=== PATIENT | female | born 1940 | race Caucasian/White ===

== ENCOUNTER 2022-03-06 15:12 | Inpatient (IN) | payer OTHER ==
[~2022-03-06] VITALS: Ht 165.1 cm; Wt 71.7 kg
[2022-03-06 15:15] VITALS: BP_SYST 200
[2022-03-06] MEDS ORDERED: iohexoL 350 mgI/mL, 100 ML INFUS..BTL IV ONE (15:20)
--- NOTE | 2022-03-06 15:22 | NUR ---
TAKEN IMMEDIATELY TO CT SCAN WITH STAFF ACCOMPANIED.
--- NOTE | 2022-03-06 15:22 | NUR ---
CODE STROKE INITIATED.
--- NOTE | 2022-03-06 15:31 | NUR ---
PT STATES THAT SHE HAS BEEN HAVING MULTIPLE FALLS RECENTLY, DENIES ANY HEAD INJURY, STATES THAT SHE HAS JUST BEEN OFF BALANCE. 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 PT IS ALERT AND ORIENTED. DENIES ANY PAIN. PT STATES SHE WAS RECENTLY AT [facility] FOR A FALL. PT STATES SHE HAS A DAUGHTER WHO RESIDES IN [place].
--- NOTE | 2022-03-06 15:35 | NUR ---
TELENEURO REQUESTED ORDERED BY DR. CRISTOFER COOMBS AT BEDSIDE
[2022-03-06 16:06] LABS: ANION GAP 10 (5-15); BASOPHILS # (AUTO) 0.1 K/uL (0.0-0.2); CALCIUM 9.4 mg/dL (8.4-11.0); CHLORIDE 108 mmol/L (98-107); CREATININE 0.66 mg/dL (0.55-1.30); EOSINOPHILS # (AUTO) 0.2 K/uL (0.0-0.4); EOSINOPHILS % (AUTO) 3.6 % (0.0-4.0); GLUCOSE 170 mg/dL (70-99); HEMATOCRIT 33.4 % (36-48); HEMOGLOBIN 11.6 g/dL (12.0-16.0); LYMPHOCYTES # (AUTO) 1.7 K/uL (1.0-5.5); LYMPHOCYTES % (AUTO) 27.3 % (20.5-51.5); MEAN CORPUSCULAR HEMOGLOBIN 33 pg (27-31); MEAN CORPUSCULAR HGB CONC 35 % (32-36); MEAN CORPUSCULAR VOLUME 94 fL (79.0-98.0); MONOCYTES # (AUTO) 0.6 K/uL (0.0-1.0); MONOCYTES % (AUTO) 9.6 % (1.7-9.3); NEUTROPHILS # (AUTO) 3.7 K/uL (1.8-7.7); NEUTROPHILS % (AUTO) 58.5 % (40.0-70.0); PLATELET COUNT (AUTO) 129 K/uL (130-430); RED BLOOD CELL COUNT(AUTO) 3.53 MIL/uL (4.2-6.2); RED CELL DISTRIBUTION WIDTH 14.3 % (9.0-15.0); UREA NITROGEN, BLOOD 15 mg/dL (8-21); WHITE BLOOD COUNT (AUTO) 6.3 K/uL (4.8-10.8)
[2022-03-06 16:13] LABS: ALANINE AMINOTRANSFERASE 28 U/L (12-78); ASPARTATE AMINOTRANSFERASE 29 U/L (10-37)
[2022-03-06 16:26] LABS: INR 1.2 (0.8-1.2); PROTHROMBIN TIME 11.8 SECS (9.5-12.5)
--- NOTE | 2022-03-06 17:01 | NUR ---
SPOKE WITH DAUGHTER ROBERTA AND ALL QUESTIONS ANSWERED. ALL INFORMATION OBTAINED WAS GIVEN TO DR CLEVELAND. ACCORDING TO DAUGHTER, PT MAY NEED TO GO INTO AN ASSISTED LIVING DUE TO ISSUES WITH FALLING AND INABILITY TO TAKE CARE OF HERSELF AT HOME. PT LIVES BY HERSELF AND DAUGHTER ROBERTA LIVES IN [place]. ALL PHONE NUMBERS WERE VERIFIED
[2022-03-06] MEDS ORDERED: LOSA100T3 PO (17:40)
[2022-03-06] MEDS ORDERED: [UNRECOGNIZED DRUG - CODE] PO (17:40)
[2022-03-06] MEDS ORDERED: ASPI-1155 PO (17:40)
[2022-03-06] MEDS ORDERED: PRAV10TA PO (17:40)
[2022-03-06] MEDS ORDERED: LEVO75TA7 PO (17:40)
[2022-03-06] MEDS ORDERED: METO25TA3 PO (17:40)
--- NOTE | 2022-03-06 17:40 | NUR ---
Medication reconciliation completed with information provided by PATIENT. Any prior medication reconciliation on file was reviewed and corrected.
--- NOTE | 2022-03-06 17:45 | NUR ---
PT TAKING TO TELE NEURO AT THIS TIME.
[2022-03-06 17:54] LABS: BILIRUBIN,URINE NEGATIVE (NEGATIVE); BLOOD, URINE NEGATIVE (NEGATIVE); CLARITY/URINE CLEAR (CLEAR); COLOR,URINE YELLOW (YELLOW); GLUCOSE,URINE NEGATIVE (NEGATIVE); KETONES,URINE NEGATIVE (NEGATIVE); LEUKOCYTE ESTERASE ,URINE NEGATIVE (NEGATIVE); NITRITE, URINE NEGATIVE (NEGATIVE); PROTEIN URINE NEGATIVE (NEGATIVE); UROBILINOGEN,URINE 0.2 (0.2-1.0)
[2022-03-06] MEDS ORDERED: ASPIRIN 325 MG TABLET (ECOTRIN) PO ONE (18:15)
[2022-03-06] MEDS ORDERED: CLOPIDOGREL BISULFATE 75 MG TABLET PO ONE (18:15)
--- NOTE | 2022-03-06 19:30 | NUR ---
PT RESTING IN BED AWAKE, A&O X4, AND FOLLOWING COMMANDS. PT STATING SHE IS NOT IN ANY DISCOMFORT. PT WITH NOTICABLE LEFT SIDED FACIAL DROOP AND SLIGHTH SLURRED SPEECH. PT HYPERTENSIVE AT 196/95, MADE AWARE. AWAITING NEW ORDERS. SAFETY PRECAUTIONS IN PLACE AND CONNECTED TO MONITOR.
[2022-03-06] MEDS ORDERED: cloNIDine HCL 0.1 MG TABLET PO ONE (20:00)
[2022-03-06] MEDS ORDERED: hydrALAZINE HCL 20 MG/ML VIAL IVP PRN (20:30)
--- NOTE | 2022-03-06 20:31 | NUR ---
Admit bed requested Patient will be admitted to care of . Admitted to TELE unit. Diagnosis STROKE Inpatient (Yes or No) YES Observation (Yes or No) NO Orientation concerns or request close to nursing station (Yes or No) NO Covid Status NEGATIVE On vent or bipap NO Isolation requirements NO Needs a sitter NO From Home (Yes or if No enter name of facility) YES Requires Dialysis (Yes or No) NO Med Rec Completed (Yes of No) PENDING
--- NOTE | 2022-03-07 00:05 | NUR ---
PT RESTING IN BED, EYES CLOSED. EVEN AND UNLABORED RESPS NOTE, NAD. VSS. SAFETY PRECAUTIONS IN PLACE AND CONNECTED TO MONITOR.
--- NOTE | 2022-03-07 03:23 | NUR ---
VSS. PT ALSEEP IN BED, NAD. SAFETY PRECAUTIONS IN PLACE AND CONNECTED TO MONITOR.
[2022-03-07 06:17] LABS: BASOPHILS # (AUTO) 0.1 K/uL (0.0-0.2); BASOPHILS % (AUTO) 0.9 % (0.0-2.0); EOSINOPHILS # (AUTO) 0.3 K/uL (0.0-0.4); EOSINOPHILS % (AUTO) 5.2 % (0.0-4.0); HEMATOCRIT 36.9 % (36-48); HEMOGLOBIN 12.7 g/dL (12.0-16.0); LYMPHOCYTES % (AUTO) 30.8 % (20.5-51.5); MEAN CORPUSCULAR HEMOGLOBIN 32 pg (27-31); MEAN CORPUSCULAR HGB CONC 34 % (32-36); MEAN CORPUSCULAR VOLUME 94 fL (79.0-98.0); MONOCYTES # (AUTO) 0.5 K/uL (0.0-1.0); MONOCYTES % (AUTO) 7.3 % (1.7-9.3); NEUTROPHILS # (AUTO) 3.5 K/uL (1.8-7.7); NEUTROPHILS % (AUTO) 55.8 % (40.0-70.0); PLATELET COUNT (AUTO) 130 K/uL (130-430); RED BLOOD CELL COUNT(AUTO) 3.92 MIL/uL (4.2-6.2); RED CELL DISTRIBUTION WIDTH 14.5 % (9.0-15.0); WHITE BLOOD COUNT (AUTO) 6.3 K/uL (4.8-10.8)
[2022-03-07 06:21] LABS: ANION GAP 12 (5-15); CALCIUM 9.4 mg/dL (8.4-11.0); CHLORIDE 108 mmol/L (98-107); CREATININE 0.57 mg/dL (0.55-1.30); GLUCOSE 133 mg/dL (70-99); UREA NITROGEN, BLOOD 12 mg/dL (8-21)
[2022-03-07 06:23] LABS: ALANINE AMINOTRANSFERASE 33 U/L (12-78); ALBUMIN 3.4 g/dL (3.4-4.8); ASPARTATE AMINOTRANSFERASE 37 U/L (10-37); TOTAL BILIRUBIN 1.1 mg/dL (0.0-1.0)
--- NOTE | 2022-03-07 07:19 | NUR ---
REPORT GIVEN TO ANTHONY PADILLA TO ASSUME CARE.
--- NOTE | 2022-03-07 07:20 | NUR ---
Received report at this time.
[2022-03-07] MEDS ORDERED: LEVOTHYROXINE SODIUM 0.075 MG TABLET PO ONE (14:15)
[2022-03-07] MEDS ORDERED: CLOPIDOGREL BISULFATE 75 MG TABLET PO ONE (14:15)
--- NOTE | 2022-03-07 15:00 | NUR ---
Pt aware to avoid food/drink. Pt is npo. Pt verbalized understanding. NPO Notification sign placed in front of er curtain entrance and above bed.
--- NOTE | 2022-03-07 15:29 | NUR ---
patient care secretary contacting speech therapy to evaluate pt's swallowing at this time.
[2022-03-07] MEDS: D5/0.45 NS 1,000 ML IV SCH (15:34)
--- NOTE | 2022-03-07 15:46 | NUR ---
Notified by Dr. Marquez (of Radiology). Physician states that patient has a Right basal ganglia infarct. Instructed to notify provider. payroll secretary overhead paged admiting provider team at this time.
--- NOTE | 2022-03-07 15:51 | NUR ---
Notifed Cory Valera of patient's MRI results given to me by Dr. Marquez (Radiologist). NO new orders received.
--- NOTE | 2022-03-07 17:22 | NUR ---
ST EVALUATION COMPLETED. ST TX NOT INDICATED AT THIS TIME. RECOMMEND PUREE/NECTAR THICK LIQUIDS WITH SUPERVISION AND FULL ASPIRATION PRECAUTIONS.
--- NOTE | 2022-03-07 19:25 | NUR ---
Report given to RANDY Arteaga.
[2022-03-07 20:00] VITALS: BP_SYST 200
[2022-03-07 20:05] VITALS: BP_SYST 200
[2022-03-07 23:00] VITALS: BP_SYST 179
[2022-03-08] VITALS (7 sets, daily range): BP systolic 147–184
[2022-03-08] MEDS: D5/0.45 NS 1,000 ML IV SCH ×2 (06:49→17:16)
--- NOTE | 2022-03-08 07:23 | NUR ---
OPENING NOTE Patient in bed resting. A/O x 4, Danish speaking, noted left sided weakness. No pain, no SOB, no distress at this time. Breathing even and unlabored on RA. Patient has IV to Left AC, patent on infusion pump: D5 1/2NS at 75cc/hr. Patient on purwick. Patient on Puree diet with nectar thick liquids. All needs met at this time. Bed locked in lowest position, Call light within reach. Will continue to monitor.
[2022-03-08 07:33] LABS: ANION GAP 8 (5-15); CALCIUM 8.7 mg/dL (8.4-11.0); CHLORIDE 105 mmol/L (98-107); CREATININE 0.56 mg/dL (0.55-1.30); GLUCOSE 200 mg/dL (70-99); UREA NITROGEN, BLOOD 7 mg/dL (8-21)
[2022-03-08] MEDS: LOSARTAN POTASSIUM 50 MG TABLET (COZAAR) PO SCH (08:14)
[2022-03-08] MEDS: METOPROLOL SUCCINATE 25 MG TAB.SR.24H (TOPROL XL) PO SCH (08:14)
[2022-03-08] MEDS: ATORVASTATIN 10 MG TABLET PO SCH (08:15)
[2022-03-08] MEDS: CLOPIDOGREL BISULFATE 75 MG TABLET PO SCH (08:15)
[2022-03-08] MEDS: LEVOTHYROXINE SODIUM 0.075 MG TABLET PO SCH (08:15)
[2022-03-08] MEDS ORDERED: PAROXETINE HCL 12.5 MG PO SCH (09:00)
[2022-03-08] MEDS ORDERED: PRAVASTATIN SODIUM 10 MG TABLET (PRAVACHOL) PO SCH (09:00)
--- NOTE | 2022-03-08 10:05 | NUR ---
MD NEAL Spoke to MD Neal regarding Potassium level of 3.1, he gave new orders for Potassium PO. Orders carried out.
[2022-03-08] MEDS ORDERED: POTASSIUM CHLORIDE 20 MEQ/PKT PACKET PO ONE (10:15)
--- NOTE | 2022-03-08 10:51 | NUR ---
MD ÁNGEL SAWYER saw patient at bedside. stated new orders. Will carry out.
[2022-03-08] MEDS ORDERED: amLODIPine BESYLATE 5 MG TABLET PO ONE (11:00)
--- NOTE | 2022-03-08 12:13 | NUR ---
DCP referral: [facility] patient faxed DC planning request to weekend coordinators. [facility] patient initiated referral to their [employer] [employer] Dept. weekend voicemail [phone].
--- NOTE | 2022-03-08 12:15 | NUR ---
ROUNDS: Patient in bed resting. No pain, no SOB, no distress at this time. Breathing even and unlabored on RA. All needs met at this time. Bed locked in lowest position, Call light within reach. Will continue to monitor.
--- NOTE | 2022-03-08 12:55 | NUR ---
P.T. NOTES P.T. EVAL COMPLETED; REFER TO EVAL FOR DETAILS.
[2022-03-08 13:00] LABS: BASOPHILS % (AUTO) 0.7 % (0.0-2.0); EOSINOPHILS # (AUTO) 0.3 K/uL (0.0-0.4); HEMOGLOBIN 13.7 g/dL (12.0-16.0); LYMPHOCYTES # (AUTO) 1.2 K/uL (1.0-5.5); LYMPHOCYTES % (AUTO) 18.7 % (20.5-51.5); MEAN CORPUSCULAR HEMOGLOBIN 33 pg (27-31); MEAN CORPUSCULAR HGB CONC 35 % (32-36); MEAN CORPUSCULAR VOLUME 94 fL (79.0-98.0); MONOCYTES # (AUTO) 0.5 K/uL (0.0-1.0); MONOCYTES % (AUTO) 7.1 % (1.7-9.3); NEUTROPHILS # (AUTO) 4.6 K/uL (1.8-7.7); NEUTROPHILS % (AUTO) 69.5 % (40.0-70.0); PLATELET COUNT (AUTO) 130 K/uL (130-430); RED BLOOD CELL COUNT(AUTO) 4.15 MIL/uL (4.2-6.2); RED CELL DISTRIBUTION WIDTH 14.4 % (9.0-15.0); WHITE BLOOD COUNT (AUTO) 6.6 K/uL (4.8-10.8)
[2022-03-08 14:26] LABS: BASOPHILS # (AUTO) 0.1 K/uL (0.0-0.2); EOSINOPHILS # (AUTO) 0.2 K/uL (0.0-0.4); EOSINOPHILS % (AUTO) 2.6 % (0.0-4.0); HEMATOCRIT 42.6 % (36-48); HEMOGLOBIN 14.6 g/dL (12.0-16.0); LYMPHOCYTES # (AUTO) 1.1 K/uL (1.0-5.5); LYMPHOCYTES % (AUTO) 13.6 % (20.5-51.5); MEAN CORPUSCULAR HEMOGLOBIN 32 pg (27-31); MEAN CORPUSCULAR HGB CONC 34 % (32-36); MEAN CORPUSCULAR VOLUME 94 fL (79.0-98.0); MONOCYTES # (AUTO) 0.6 K/uL (0.0-1.0); MONOCYTES % (AUTO) 6.8 % (1.7-9.3); NEUTROPHILS # (AUTO) 6.3 K/uL (1.8-7.7); PLATELET COUNT (AUTO) 176 K/uL (130-430); RED BLOOD CELL COUNT(AUTO) 4.54 MIL/uL (4.2-6.2); RED CELL DISTRIBUTION WIDTH 14.3 % (9.0-15.0); WHITE BLOOD COUNT (AUTO) 8.3 K/uL (4.8-10.8)
--- NOTE | 2022-03-08 16:17 | NUR ---
DR CITLALY Asencio at bedside consulting with patient.
--- NOTE | 2022-03-08 18:54 | NUR ---
CLOSING NOTE Patient in bed resting. A/O x 4, Khmer speaking, noted left sided weakness. No pain, no SOB, no distress at this time. Breathing even and unlabored on RA. Patient has IV to Left AC, patent on infusion pump: D5 1/2NS at 75cc/hr. Patient on purwick. Patient on Puree diet with nectar thick liquids. All needs met at this time. Bed locked in lowest position, Call light within reach. Will endorse to nightshift nurse.
--- NOTE | 2022-03-08 20:17 | NUR ---
RECEIVED PT LYING IN BED, NO DISTRESS NOTED, DENIES PAIN. AAOX2. O2 SAT 95% ON RA. LT SIDE WEAKNESS MINIMAL MOVEMENT NOTED, ELEVATED LUE ONTO PILLOW. FACIAL DROOP NOTED. PALPABLE PULSES TO ALL EXTREMITIES. BED IN LOW POSITION. BED ALARM ON. Addendum: 03/08/22 at 2033 by [facility], RANDY PADILLA IV TO LT AC SITE CDI.
[2022-03-09 01:00] VITALS: BP_SYST 162
[2022-03-09] MEDS: D5/0.45 NS 1,000 ML IV SCH ×2 (06:32→21:08)
[2022-03-09 08:40] VITALS: BP_SYST 163
[2022-03-09] MEDS: amLODIPine BESYLATE 5 MG TABLET PO SCH (10:28)
[2022-03-09] MEDS: ATORVASTATIN 10 MG TABLET PO SCH (10:29)
[2022-03-09] MEDS: LOSARTAN POTASSIUM 50 MG TABLET (COZAAR) PO SCH (10:30)
[2022-03-09] MEDS: CLOPIDOGREL BISULFATE 75 MG TABLET PO SCH (10:31)
[2022-03-09] MEDS: METOPROLOL SUCCINATE 25 MG TAB.SR.24H (TOPROL XL) PO SCH (10:31)
[2022-03-09] MEDS: LEVOTHYROXINE SODIUM 0.075 MG TABLET PO SCH (10:34)
--- NOTE | 2022-03-09 11:06 | NUR ---
SNF inquiry sent out , waiting for bed availability
[2022-03-09 11:37] VITALS: BP_SYST 139
[2022-03-09] MEDS ORDERED: CLOP75TA32 PO (13:00)
[2022-03-09 16:00] VITALS: BP_SYST 135
[2022-03-09 20:00] VITALS: BP_SYST 170
[2022-03-10 01:00] VITALS: BP_SYST 166
[2022-03-10] MEDS: D5/0.45 NS 1,000 ML IV SCH ×2 (02:30→18:43)
[2022-03-10] MEDS: LEVOTHYROXINE SODIUM 0.075 MG TABLET PO SCH (06:01)
--- NOTE | 2022-03-10 07:10 | NUR ---
OPENING NOTE RECEIVED SBAR FROM NIGHT RN. PATIENT IN BED, RESPIRATIONS EVEN, NON LABORED, BED IN LOW AND LOCKED POSITION, CALL LIGHT WITHIN REACH. BED ALARM ON IVF'S RUNNING ORDERED.
[2022-03-10 08:00] VITALS: BP_SYST 152
[2022-03-10] MEDS: CLOPIDOGREL BISULFATE 75 MG TABLET PO SCH (09:42)
[2022-03-10] MEDS: amLODIPine BESYLATE 5 MG TABLET PO SCH (09:42)
[2022-03-10] MEDS: LOSARTAN POTASSIUM 50 MG TABLET (COZAAR) PO SCH (09:43)
[2022-03-10] MEDS: METOPROLOL SUCCINATE 25 MG TAB.SR.24H (TOPROL XL) PO SCH (09:43)
[2022-03-10] MEDS: ATORVASTATIN 10 MG TABLET PO SCH (09:44)
--- NOTE | 2022-03-10 09:48 | NUR ---
transfer of care provided sbar to RN. Patient in bed, respirations even, non labored, bed in low and locked position. call light within reach. Endorsed new IV fluid bag that needs to be hung
[2022-03-10 11:25] VITALS: BP_SYST 166
--- NOTE | 2022-03-10 14:26 | NUR ---
Dietitian Recommendations * Continue puree, NTL per HORTICULTURE/FLORICULTURE TEACHER rec * Consider switching to CCHO puree diet, if BG remain high and PO intake improve GS, MPH, RD Please refer to RD Assessment for further details. Thanks! Addendum: 03/10/22 at [address] Amended: Links added.
[2022-03-10 15:20] VITALS: BP_SYST 157
[2022-03-10 20:00] VITALS: BP_SYST 163
--- NOTE | 2022-03-10 20:27 | NUR ---
RECEIVED PT LYING IN BED, NO DISTRESS NOTED. MORE ALERT TODAY, SPEECH IS MORE CLEAR. PT CONTINUES TO HAVE FACIAL DROP, UNABLE TO MOVE LUE AND LLE. PT HAD A LARGE BM, CLEANED AND REPOSITIONED. Addendum: 03/11/22 at 0034 by [facility], RANDY PADILLA ELEVATED BP HYDRALAZINE 10MG GIVEN. WILL MONITOR CLOSELY
[2022-03-11 00:35] VITALS: BP_SYST 190
[2022-03-11 01:10] VITALS: BP_SYST 152
[2022-03-11] MEDS: LEVOTHYROXINE SODIUM 0.075 MG TABLET PO SCH (06:14)
--- NOTE | 2022-03-11 07:24 | NUR ---
PHYSICAL THERAPY CO-SIGN The Physical Therapy Progress Notes documented by [employer] have been reviewed. Reviewed/Co-Signed by: Robel Bui Documentation Done by: CHANA ESQUIVEL PTA Addendum: 03/11/22 at 0724 by Robel Bui PT Amended: Links added.
[2022-03-11 08:26] VITALS: BP_SYST 143
[2022-03-11] MEDS: CLOPIDOGREL BISULFATE 75 MG TABLET PO SCH (09:44)
[2022-03-11] MEDS: METOPROLOL SUCCINATE 25 MG TAB.SR.24H (TOPROL XL) PO SCH (09:44)
[2022-03-11] MEDS: LOSARTAN POTASSIUM 50 MG TABLET (COZAAR) PO SCH (09:45)
[2022-03-11] MEDS: amLODIPine BESYLATE 5 MG TABLET PO SCH (09:46)
[2022-03-11] MEDS: ATORVASTATIN 10 MG TABLET PO SCH (09:46)
[2022-03-11] MEDS: D5/0.45 NS 1,000 ML IV SCH (12:50)
[2022-03-11 12:53] VITALS: BP_SYST 148
--- NOTE | 2022-03-11 14:43 | NUR ---
Patient has a bed at [facility] Bed 107A Please call [phone] [facility] at 5[facility] Daughter is aware any questions please call me at [phone]
[2022-03-11 16:10] VITALS: BP_SYST 145
[2022-03-11 18:00] VITALS: BP_SYST 154
--- NOTE | 2022-03-11 18:30 | NUR ---
[phone]. Daughter Jennifer Morel made aware w/ phone # [phone].
--- NOTE | 2022-03-11 20:08 | NUR ---
Patient d/c to [facility] via gurney. Patient's awake, alert, and verbally responsive in no acute distress w/ no c/o pain or discomfort. VSS.
== END 2022-03-11 19:45 | DRG 65 ==
LOC: SED 15:12 → STU 20:23 → SMU 03-11 18:57
PROVIDERS: ADMIT Internal Medicine; ATTEND Internal Medicine
DX: I63.9 Cerebral infarction, unspecified (principal); G81.94 Hemiplegia, unspecified affecting left nondominant side; E78.5 Hyperlipidemia, unspecified; E03.9 Hypothyroidism, unspecified; F32.A Depression, unspecified; Z20.822 Contact with and (suspected) exposure to COVID-19; R29.702 NIHSS score 2; I10 Essential (primary) hypertension; Z86.73 Personal history of transient ischemic attack (TIA), and cerebral infarction without residual deficits
CPT/HCPCS: 36415; 70450-TC; 70496; 70498; 70551; 71045; 76376; 80048; 80053; 81003; 83036; 84484; 85025; 85610-TC; 85730-TC; 86886; 86900; 86901; 92610-GN; 93005; 97110-GP; 97112-GP; 97163-GP; 97530-GP; 99291; G0378; J0360; Q9967